=== PATIENT | female | born 1995 | race Caucasian/White ===

== ENCOUNTER 2019-03-22 23:10 | Emergency (ER) | payer BC, OTHER ==
[2019-03-23 00:52] LABS: URINE BLOOD (Dip) POC Negative (NEGATIVE); URINE GLUCOSE (Dip) POC Negative (NEGATIVE); URINE KETONES (Dip) POC Trace (NEGATIVE); URINE LEUKOCYTE EST (Dip) POC Trace (NEGATIVE); URINE NITRITE (Dip) POC Negative (NEGATIVE); URINE TOTAL PROTEIN POC 1+ (NEGATIVE)
[2019-03-23 00:52] LABS: URINE PH (Dip) POC 5.5 (5.0-8.5)
[2019-03-23] MEDS: predniSONE 20 MG TAB PO (01:35)
[2019-03-23] MEDS: ONDANSETRON (ODT) 4 MG TAB ODT (01:37)
[2019-03-23] MEDS: IBUPROFEN 600 MG TAB PO (01:38)
== END 2019-03-23 01:50 | disposition home or self-care (01) ==
LOC: FTE 23:10
DX: J03.90 Acute tonsillitis, unspecified (principal)
CPT/HCPCS: 81003; 81025; 99283